=== PATIENT | female | born 1975 | race Caucasian/White ===

== ENCOUNTER 2018-08-19 11:00 | Day surgery (SDC) | payer OTHER ==
[~2018-08-19] VITALS: Ht 162.6 cm; Wt 82.9 kg
[2018-08-19] VITALS (9 sets, daily range): BP systolic 104–153; BP diastolic 64–81; PULSE 81–100; RESP 15–18; Ht 162.6 cm; Wt 82.9 kg
[~2018-08-19 11:00] MED LIST: LACTATED RINGER'S 1,000 ML IV SCH
--- NOTE | 2018-08-19 12:45 | HPN ---
Date/Time of Note Date/Time of Note DATE: 08/19/18 TIME: 12:44 Interval H&P Admission Note Pt. seen H&P reviewed: No system changes RAFFAELE HERNANDEZ MD Aug 19, 2018 12:45
--- NOTE | 2018-08-19 12:57 | PREAC ---
Date/Time of Note Date/Time of Note DATE: 08/19/18 TIME: 12:56 Anesthesia Eval and Record Evaluation Time Pre-Procedure Interview DATE: 08/19/18 TIME: 12:56 Age 43 Sex female NPO: 8 hrs Preoperative diagnosis STERILIZATION Planned procedure LAP TUBAL LIGATION Past Medical History Past Medical History: Includes GI: Obesity, Morbid obesity Surgery & Anesthesia Issues No known issue Meds Anticoagulation: No Beta Ariel within 24 hr: No Reason Beta Ariel not given: Pt. not on B-Ariel Current Medications Lactated Ringer's 1,000 ml @ 125 mls/hr Q8H IV Last administered on 08/19/18at 11:39; Admin Dose 125 MLS/HR; Start 08/19/18 at 06:00; Stop 08/19/18 at 17:00 Meds reviewed: Yes Allergies Coded Allergies: No Known Drug Allergies (Verified Allergy, Unknown, 08/19/18) Allergies Reviewed: Yes Labs/Studies Labs Reviewed: Reviewed by anesthesiologist test: Negative Pre-procedure Exam Last vitals Vital Signs Date Temp Pulse Resp B/P (MAP) Pulse Ox O2 O2 Flow FiO2 Time Delivery Rate 08/19/18 98.5 81 16 104/64 99 Room Air 11:43 (77) Airway: Adequate mouth opening, Adequate thyromental dist Mallampati: Mallampati IV Teeth: Normal Lung: Normal Heart: Normal ASA Physical Status ASA physical status: 2 Emergency: None Pre-operative Attestations Prior to commencing anesthesia and surgery, the patient was re-evaluated, there was verification of: *The patient's identity *The results of appropriate recent lab work and preoperative vital signs *The above evaluation not changing prior to induction *Anesthetic plan, risk benefits, alternative and complications discussed with patient/family; questions answered; patient/family understands, accepts and wishes to proceed. ALEXANDRA SOFIA DO Aug 19, 2018 12:57
[2018-08-19] MEDS ORDERED: LIDOCAINE 1% (MDV) 20 ML INJ ONE (13:00)
[2018-08-19] MEDS ORDERED: PROPOFOL 20 ML ONE (13:00)
[2018-08-19] MEDS ORDERED: ROCURONIUM 50 MG INJ ONE (13:00)
[2018-08-19] MEDS ORDERED: HYDROmorphONE 1 MG/5 ML IV SYRINGE IV PRN ×3 (13:00)
[2018-08-19] MEDS ORDERED: MIDAZOLAM 1 MG/ML 2 ML INJ ONE (13:00)
[2018-08-19] MEDS ORDERED: ROPIVACAINE 0.5 % 30 ML VIAL ONE (13:03)
[2018-08-19] MEDS ORDERED: CEFAZOLIN 1 GM INJ ONE (13:16)
[2018-08-19] MEDS ORDERED: ONDANSETRON 4 MG INJ ONE (13:17)
[2018-08-19] MEDS ORDERED: SUGAMMADEX SODIUM 200 MG/2 ML VIAL IV ONE (14:01)
--- NOTE | 2018-08-19 14:05 | PD.PPDC ---
[facility] COMMISSION[facility] Discharge Instruction Diagnosis [id number] Final Diagnosis: [id number] multiparity s/p LSC BTI Condition [id number] Patient Condition: Ukuvx6s Stable Diet Adbwm8Ss Diet: Fgijx3e Resume Regular Diet Activity/Restrictions Kyrdx7Hg Activity: Wqunn8t May Shower Ihqps0Vz Restrictions: Hgawd4p No Sexual Activity Nothing in the Vagina No [place] No Tampons, douche Wound/Drain Care Instructions [id number] Wound/Drain Care Instructions: Jnolm0l Wash with soap and water Keep clean and dry Follow-up Follow-up with Physician: Week/Weeks Return to clinic for Orkof2Fg HOURLY ASSOCIATE Instructions: Nvuie1i Fever greater than 101 Chills Worsening abdominal pain Excessive Vaginal Bleeding More than 2 pads per hour [id number] Surgical Instructions: Scwgd8s Incisional Redness RAFFAELE HERNANDEZ MD Aug 19, 2018 14:05
--- NOTE | 2018-08-19 14:09 | SIPON ---
Date/Time of Note Date/Time of Note DATE: 08/19/18 TIME: 14:06 Operative Report Preoperative Diagnosis multiiparity for tubal sterilization Postoperative Diagnosis same Operation/Procedure Performed LSC bilateral tubal fulguration Surgeon see signature line editorial assistant MT Anesthesia: general Estimated blood loss: minimal Transfusion Required none Specimen none Grafts/Implants none Complications none RAFFAELE HERNANDEZ MD Aug 19, 2018 14:09
--- NOTE | 2018-08-19 15:26 | PAC ---
Date/Time of Note Date/Time of Note DATE: 08/19/18 TIME: 15:25 Post-Anesthesia Notes Post-Anesthesia Note Last documented vital signs Vital Signs Date Temp Pulse Resp B/P (MAP) Pulse Ox O2 O2 Flow FiO2 Time Delivery Rate 08/19/18 98.5 81 16 104/64 99 Room Air 11:43 (77) Activity: WNL Respiratory function: WNL Cardiovascular function: WNL Mental status: Baseline Pain reasonably controlled: Yes Hydration appropriate: Yes Nausea/Vomiting absent: Yes ALEXANDRA SOFIA DO Aug 19, 2018 15:26
--- NOTE | 2018-08-21 08:23 | OPR ---
DATE OF OPERATION: 08/19/2018 PREOPERATIVE DIAGNOSIS: Multiparity for tubal sterilization. POSTOPERATIVE DIAGNOSIS: Multiparity for tubal sterilization. OPERATION PERFORMED: Laparoscopic bilateral tubal fulguration. ANESTHESIA: General. ANESTHESIOLOGIST: Dr. Finney. SURGEON: Dominique Malloy M.D. ASSISTANT MEN'S SOCCER COACH: cell technician, Fred. ESTIMATED BLOOD LOSS: Negligible. PROCEDURE: Under appropriate induction of general anesthesia, the patient was placed under dorsal li thotomy position. Perineal and vagina and abdominal wall was prepped and draped in usual fashion. B imanual examination revealed uterus normal size and consistency. There was no palpable adnexal patho logy. Weighted speculum was introduced into the vagina. Cervix identified, which was clear and ante rior lip of cervix was grasped with a single tooth tenaculum. HUMI was introduced and left in utero for the manipulation of the uterus for the next procedure and weighted speculum was removed and a Fol ey catheter was introduced prior to the HUMI insertion. Then, a small vertical incision was made in subumbilical region and the Veress needle was inserted into the abdominal cavity without any difficul ty. This was confirmed by still using small amount of normal saline and then the abdominal cavity wa s insufflated with CO2. A 5 mm trocar was introduced with the scope was introduced in the abdominal cavity after the incision was stretched with a Mercedes. The entire pelvic organ was visualized and sec ond puncture on the suprapubic area. After elimination of the lesion with the scope in avascular are a incision was made. Second trocar was inserted without any difficulty and the probe was inserted. Entire uterus and the ovary, fallopian tube was visualized. With the assistant in nursing of HUMNu and the uteru s was lifted and the left fallopian tube clearly visualized approximately 2-inch from the cornual gra sped with the gyrus material control analyst and the entire structure was grasped and fulgurated, entire thickness of the fallopian tube was fully fulgurated and cut and then second coagulation was done approximately 2-inch from the primary site, also fulgurated and cut and the tubal continuity was disrupted. No bl eeder was noted. The same procedure was done on the right fallopian tube on the 2 separate spot, tub al continuity completely . No bleeder was noted. Picture was taken and both ovaries appear ed to be normal. The procedure was completed and the gyrus was removed and the probe was inserted an d reexamined the pelvic organ, which was satisfactory. Through the second trocar the CO2 was removed and this trocar was removed under the direct visualization checking the bleeding from the site, whic h was intact. No bleeding noted on the second trocar site. Scope was removed and further the remova l of gas through the first trocar and then trocar was removed. No bleeding noted. Incisional site o n the suprapubic region was closed with a 3-0 Monocryl in simple suture and again the laparoscopic si te also closed with a 3-0 Monocryl in simple suture. No bleeder was noted. Marcaine was not given b ecause prior to surgery TAP was done by anesthesiologist for the postop pain. HUMI was actually expe lled while we were manipulating the uterus layer at the beginning, which was replaced with a sponge s tick with the ring forceps, which was removed from the vagina. Procedure was completed. Guillen was r emoved. The patient was sent to recovery room in stable condition. Dictated By: DOMIINQUE GRIJALVA/GIOVANA Conf#: [id number] DID#: [id number] CC: DAVID CHEN MD;*EndCC*
== END 2018-08-19 15:50 | disposition home or self-care (01) ==
LOC: SDS 11:00
PROVIDERS: ATTEND Obstetrics & Gynecology
DX: Z30.2 Encounter for sterilization (principal); N92.1 Excessive and frequent menstruation with irregular cycle
CPT/HCPCS: 58670; J0690; J2250; J2405; J2795; J3010; Z7512; Z7610